=== PATIENT | female | born 1930 | race Caucasian/White ===

== ENCOUNTER 2018-09-26 19:55 | Emergency (ER) | payer SELFPAY ==
[~2018-09-26] VITALS: Ht 152.4 cm; Wt 80.0 kg
[~2018-09-26 19:55] MED LIST: CEPH-368 PO; NONE PER PT; ONDA4TAB7 PO; OXYC5TAB3 PO
--- NOTE | 2018-09-26 20:09 | NUR ---
88 Y/O FEMALE ASHWINI LOPEZ AFTER EXPERIENCING A MECHANICAL GLF. SHE FELL LAST NIGHT WHILE COOKING IN HER KITCHEN, SHE STATES SHE FELL OVER HER RUG. SHE REFUSED EMS TRANSPORT LAST NIGHT, TODAY SHE WOKE UP WITH PAIN, THE PAIN HAS GOTTEN SIGNIFICANTLY WORSE SINCE LAST NIGHT, NOW AFFECTING HER ADLS. THE PAIN IS LOCATED ON THE MID LEFT BACK TO THE FLANK AREA. PT DENIES ANY BLOOD IN URINE, NO VISIBLE INJURY NOTED TO BACK. PT C/O SIGNIFICANT PAIN WITH MOVEMENT/RESPRIATIONS. PT DENIES ANY PHMX OTHER THAN BREAST CA WITH RIGHT MASTECTOMY IN 2016. RA SATS FOUND TO BE 88%. PT PLACED ON O2 VIA NC @ 2 LPM. EMS ADMINISTERED 4MG OF ZOFRAN ODT AND 600MG MOTRIN PO. THE PT REPORTS TAKING AN OXYCODONE AT 1600 WITHOUT RELIEF. DOESN'T KNOW HOW MANY MG TABLET IT WAS. MONITORING EQUIPMENT APPLIED. ALL VITALS STABLE. PILLOWS PLACED BEHIND PT'S BACK FOR COMFORT. CALL LIGHT WITHIN REACH. AWAITING PROVIDER TO SEE PT. WILL CONTINUE TO MONITOR.
--- NOTE | 2018-09-26 20:10 | NUR ---
bar [phone] daughter
[2018-09-26] MEDS ORDERED: HYDROcodone/APAP 5/325 TABLET PO ONE (20:30)
--- NOTE | 2018-09-26 21:02 | NUR ---
PT BACK FROM IMAGING
[2018-09-26] MEDS ORDERED: HYDROcodone/APAP 5/325 TABLET ONE (21:03)
--- NOTE | 2018-09-26 21:08 | NUR ---
PT MEDICATED PER eMAR, NO DISTRESS, RATES PAIN 5/10
[2018-09-26 22:00] VITALS: BP 143/71
== END 2018-09-26 22:28 | disposition home or self-care (01) ==
LOC: ED 20:34
DX: S39.012A Strain of muscle, fascia and tendon of lower back, initial encounter (principal); G89.11 Acute pain due to trauma; Z87.891 Personal history of nicotine dependence; Z90.11 Acquired absence of right breast and nipple; W01.0XXA Fall on same level from slipping, tripping and stumbling without subsequent striking against object, initial encounter; Y93.89 Activity, other specified; Y92.89 Other specified places as the place of occurrence of the external cause; Y99.8 Other external cause status
CPT/HCPCS: 72110; 99283